=== PATIENT | male | born 1965 | race Two or more races ===

== ENCOUNTER 2019-09-21 10:11 | Inpatient (IN) | payer MEDICAID, SELFPAY ==
[~2019-09-21] VITALS: Ht 182.9 cm; Wt 161.9 kg
[2019-09-21] MEDS ORDERED: ACETAMINOPHEN 500 MG TAB PO ONE ×2 (10:30→10:31)
[2019-09-21] MEDS ORDERED: AZITHROMYCIN 500MG/ 250ML 250 ML IV ONE (11:30)
[2019-09-21] MEDS ORDERED: IPRATROPIUM BROM 0.5 MG/2.5ML INH SOL NEB ONE (11:30)
[2019-09-21] MEDS ORDERED: cefTRIAXone 1GM/50ML D5W 50 ML IV ONE (11:30)
[2019-09-21] MEDS ORDERED: ALBUTEROL SULF 2.5 MG/0.5ML(0.5%) NEB SOLN NEB ONE (11:30)
[2019-09-21 11:41] LABS: Basophils # (auto) 0 10 ^3/uL (0-0.2); Basophils % (auto) 0.5 % (0.0-2.0); Eosinophils # (auto) 0 10 ^3/uL (0-0.8); Hematocrit 43.7 % (41.0-53.0); Hemoglobin 14.7 g/dL (13.5-17.5); Lymphocytes # (auto) 0.3 10 ^3/uL (0.4-5.4); Lymphocytes % (auto) 3.3 % (10.0-50.0); Mean Corpuscular Hemoglobin 28.4 pg (28.0-32.0); Mean Corpuscular Hgb Conc. 33.6 g/dL (32.0-36.0); Mean Corpuscular Volume 84.5 fL (80.0-100.0); Monocytes # (auto) 0.3 10 ^3/uL (0-1.3); Monocytes % (auto) 3.4 % (0.0-12.0); Neutrophils # (auto) 9.6 10 ^3/uL (1.6-8.6); Neutrophils % (auto) 92.8 % (37.0-80.0); Platelet Count (auto) 155 10^3/uL (140-450); Red Blood Cells 5.18 10^6/uL (4.5-5.90); Red Cell Distribution Width 15.5 % (11.8-14.3); White Blood Cell 10.4 10^3/uL (4.4-10.8)
[2019-09-21 11:59] LABS: Albumin 3.1 g/dL (3.4-5.0); Anion Gap 8 (5-15); Blood Urea Nitrogen 14 mg/dL (7-18); Calcium 8.4 mg/dL (8.5-10.1); Carbon Dioxide 24 mmol/L (21-32); Chloride 97 mmol/L (98-107); Glucose 99 mg/dL (74-106); Sodium 129 mmol/L (136-145)
[2019-09-21 12:04] LABS: Alanine Aminotransferase 24 U/L (16-61); Alkaline Phosphatase 74 U/L (45-117); Aspartate Aminotransferase 29 U/L (15-37); BUN/Creatinine Ratio 13.7; Bilirubin, Total 0.8 mg/dL (0.2-1.0); GFR African American 98 mL/min; GFR Non-African American 81 mL/min; Total Protein 8.3 g/dL (6.4-8.2)
[2019-09-21] MEDS ORDERED: ONDANSETRON HCL 4 MG/2 ML VIAL ONE (12:26)
[2019-09-21] MEDS ORDERED: MORPHINE SULF INJ 2 MG/ML SYRINGE 1ML ONE (12:26)
[2019-09-21] MEDS ORDERED: MORPHINE SULF INJ 2 MG/ML SYRINGE 1ML IV ONE (12:30)
[2019-09-21] MEDS ORDERED: ONDANSETRON HCL 4 MG/2 ML VIAL IV ONE (12:30)
[2019-09-21] MEDS ORDERED: ACETAMINOPHEN 500 MG TAB PO PRN (16:45)
[2019-09-21] MEDS ORDERED: ALBUTEROL SULF HFA 90MCG INH 200DOSE IN PRN (16:45)
[2019-09-21] MEDS ORDERED: NITROGLYCERIN 0.4 MG SL TAB SL PRN (16:45)
[2019-09-21] MEDS ORDERED: MORPHINE SULF INJ 2 MG/ML SYRINGE 1ML IV PRN (16:45)
[2019-09-21] MEDS ORDERED: DEXTROSE (50%) 50ML SYRG IV PRN (16:45)
[2019-09-21] MEDS: ACCU-CHEK COMFORT CURVE STRIP VI SCH ×2 (18:00→22:27)
[2019-09-21] MEDS: InsuLIN REG 1unit/0.01ml Soln (100units/ml) SC SCH ×2 (18:00→22:00)
--- NOTE | 2019-09-21 18:15 | NUR ---
Telemetry admit from RIZWANA JAMES admitted to Telemetry unit after SBAR received. Patient oriented to ROULA TRINIDAD, RN primary RN, unit, room, bed, and unit policies regarding patient care and visiting hours. Patient now on continuous telemetry monitoring, tele box # 12 and telemetry reading on arrival to unit is SR. Patient placed on bedside oxygen, weighed by bedscale and encouraged to call if they need something. All questions and concerns addressed, patient verbalized understanding.
[2019-09-21 18:30] VITALS: BP 108/73
--- NOTE | 2019-09-21 19:12 | NUR ---
Patient requesting pain medications for [id number]. Called Hospitalist Faith and obtained orders for morphine, norco, and zofran. Orders read back and verified. Will administer accordingly.
[2019-09-21] MEDS: cefTRIAXone 1GM/50ML D5W 50 ML IV SCH (19:30)
[2019-09-21] MEDS: ASCORBIC ACID 500 MG TAB PO SCH (19:30)
[2019-09-21] MEDS: ONDANSETRON HCL 4 MG/2 ML VIAL IV PRN (19:45)
[2019-09-21] MEDS: MORPHINE SULF INJ 2 MG/ML SYRINGE 1ML IV PRN (19:45)
--- NOTE | 2019-09-21 19:55 | NUR ---
Opening Shift Note Received report from darlene Zaman RN. Assumed care of patient, awake and alert. No S/S of distress/SOB or pain. Instructed on POC and to call for assist PRN, will continue to monitor for changes Q1hr and PRN.
--- NOTE | 2019-09-21 19:55 | NUR ---
Endorsed care to night RN.
[2019-09-21 20:00] VITALS: BP 123/55
--- NOTE | 2019-09-21 20:15 | NUR ---
RIVKA LAUREANO AWARE THAT PATIENT HAS POCKET KNIFE AT BEDSIDE.
[2019-09-21] MEDS ORDERED: HYDR25TA4 PO (20:45)
[2019-09-21] MEDS ORDERED: METF-370 PO (20:45)
--- NOTE | 2019-09-21 21:54 | NUR ---
JUANY FROM LAB CALLED AND REPORTS A POSITIVE BLOOD CULTURE, GRAM POSITIVE COCCI. WILL NOTIFY
[2019-09-21 22:00] VITALS: BP 123/55
--- NOTE | 2019-09-21 22:02 | NUR ---
POCKET KNIFE DISCARDED IN SHARPS CONTAINER PER PATIENT'S REQUEST.
[2019-09-21] MEDS: HYDROcodone-ACET 5/325MG TAB PO PRN (22:28)
[2019-09-22] MEDS: MORPHINE SULF INJ 2 MG/ML SYRINGE 1ML IV PRN ×4 (01:19→23:00)
--- NOTE | 2019-09-22 01:30 | NUR ---
Urine specimen sent to lab
[2019-09-22 02:00] VITALS: BP 133/83
[2019-09-22 03:00] LABS: Urine Bacteria FEW /hpf (None Seen); Urine Blood 1+ /uL (Negative); Urine WBC 1 /hpf (0 - 3)
[2019-09-22 03:07] LABS: Alcohol, Urine < 3.0 mg/dL (0-5); Amphetamine Screen, Urine POSITIVE (NEGATIVE); Barbiturate Scree,Urine NEGATIVE (NEGATIVE); Benzodiazephine Screen, Urine NEGATIVE (NEGATIVE); Cannabinoid Screen, Urine NEGATIVE (NEGATIVE); Cocaine Screen, Urine NEGATIVE (NEGATIVE); Opiate Scree,Urine NEGATIVE (NEGATIVE); Phencyclidine Screen, Urine NEGATIVE (NEGATIVE)
[2019-09-22] MEDS: ACCU-CHEK COMFORT CURVE STRIP VI SCH ×4 (06:38→21:37)
[2019-09-22] MEDS: InsuLIN REG 1unit/0.01ml Soln (100units/ml) SC SCH ×4 (06:38→21:54)
[2019-09-22] MEDS: HYDROcodone-ACET 5/325MG TAB PO PRN (06:54)
[2019-09-22 06:56] LABS: Basophils # (auto) 0 10 ^3/uL (0-0.2); Basophils % (auto) 0.3 % (0.0-2.0); Eosinophils # (auto) 0 10 ^3/uL (0-0.8); Hematocrit 41.5 % (41.0-53.0); Hemoglobin 14.1 g/dL (13.5-17.5); Lymphocytes # (auto) 0.6 10 ^3/uL (0.4-5.4); Lymphocytes % (auto) 6.5 % (10.0-50.0); Mean Corpuscular Hemoglobin 28.9 pg (28.0-32.0); Mean Corpuscular Hgb Conc. 34.1 g/dL (32.0-36.0); Mean Corpuscular Volume 84.8 fL (80.0-100.0); Monocytes # (auto) 0.7 10 ^3/uL (0-1.3); Monocytes % (auto) 8.1 % (0.0-12.0); Neutrophils # (auto) 7.2 10 ^3/uL (1.6-8.6); Neutrophils % (auto) 85.1 % (37.0-80.0); Nucleated Red Blood Cells % 0.1 %; Platelet Count (auto) 116 10^3/uL (140-450); Red Blood Cells 4.89 10^6/uL (4.5-5.90); Red Cell Distribution Width 15.9 % (11.8-14.3); White Blood Cell 8.4 10^3/uL (4.4-10.8)
[2019-09-22 07:05] VITALS: BP 127/79
[2019-09-22 07:06] LABS: Albumin 2.7 g/dL (3.4-5.0); Calcium 8.5 mg/dL (8.5-10.1); Potassium 3.9 mmol/L (3.5-5.1)
[2019-09-22 07:10] LABS: Bilirubin, Total 1.4 mg/dL (0.2-1.0); Total Protein 7.6 g/dL (6.4-8.2)
--- NOTE | 2019-09-22 07:15 | NUR ---
Opening Shift Note Assumed care of patient, awake and alert. No S/S of distress/SOB or pain. Instructed on POC and to call for assist PRN, will continue to monitor for changes Q1hr and PRN. Fall precautions in place per safety protocol.
[2019-09-22 08:00] VITALS: BP 127/84
[2019-09-22] MEDS: cefTRIAXone 1GM/50ML D5W 50 ML IV SCH (08:23)
[2019-09-22] MEDS: ZINC SULFATE 220mg CAP or TAB PO SCH (08:23)
[2019-09-22] MEDS: ENOXAPARIN SOD 40 MG/0.4 ML SYRINGE SC SCH (08:24)
[2019-09-22] MEDS: ASCORBIC ACID 500 MG TAB PO SCH (08:24)
[2019-09-22] MEDS: CHOLECALCIFEROL (VITD3) 1,000IU=25mCg TAB PO SCH (08:24)
[2019-09-22] MEDS: ONDANSETRON HCL 4 MG/2 ML VIAL IV PRN ×3 (08:55→23:00)
[2019-09-22] MEDS ORDERED: AZITHROMYCIN 500MG/D5WorNS 250ml IV SCH (10:00)
[2019-09-22 12:00] VITALS: BP 132/80
[2019-09-22] MEDS ORDERED: VANCOMYCIN PER PHARMACY 0 MG IV SCH (12:00)
--- NOTE | 2019-09-22 14:08 | NUR ---
Received Social Service Consult for homelessness for pt Mr. Santacruz. The pt is a 53 yr old male who is alert and oriented times 3. Prior to admission pt has been living in his truck for the past year, after his divorce. Pt is independent in his adls. Pt is in agreement with placement and is being referred to the [facility], [address] [place] phone [phone] and the [facility], [address] [place]. ).The [facility] is located on the corner of [address] and [address] in the transportation Center. It opens at 6:30 in the evening. Discussed with pt that usp may not have space but they would try. The usp has their own screening process that pt will have to complete. Pt verbalized agreement. Provided information to clothes closet and a meal prior to discharge. Offered pt taxi voucher within 30 miles and pt agreed although he has his own car. Need to complete rest of assessment and have pt signed homeless waiver. After pt is out of isolation area for Covid 19 Will follow-up and provide intervention as appropriate.
--- NOTE | 2019-09-22 16:00 | NUR ---
Hospitalist at bedside MD Casas at bedside, aware of patient status. Per MD, he will review medications and make changes, no new orders at this time. Will cont to monitor patient.
[2019-09-22 17:00] VITALS: BP 136/86
--- NOTE | 2019-09-22 18:00 | NUR ---
Patient requesting pain medications for headache of 8/10. Will administer pain medications accordingly. Will cont to monitor patient.
--- NOTE | 2019-09-22 19:00 | NUR ---
Endorsed care to night RN Andrew. Patient resting in bed, no distress, sob, or pain noted at this time. Will cont to monitor.
--- NOTE | 2019-09-22 19:35 | NUR ---
Opening Shift Note Assumed care of patient, awake and alert x 4. No S/S of distress/SOB. Bed is locked. Call light within reach.Board updated. Tele box number matches monitors and leads are in correct placement. Instructed on POC and to call for assist PRN, will continue to monitor for changes Q1hr and PRN.
[2019-09-22 21:00] VITALS: BP 130/69
[2019-09-23] VITALS (7 sets, daily range): BP systolic 104–138; BP diastolic 59–81
[2019-09-23] MEDS: ONDANSETRON HCL 4 MG/2 ML VIAL IV PRN (04:47)
[2019-09-23] MEDS: MORPHINE SULF INJ 2 MG/ML SYRINGE 1ML IV PRN (04:47)
--- NOTE | 2019-09-23 06:12 | NUR ---
Received notification from charge nurse Safia TINEO that results for COVID-19 has come in and patient is negative. Will be transferring patient to room 223A under care of RIVKA Campo after day shift shift change. Patient notified.
[2019-09-23] MEDS: InsuLIN REG 1unit/0.01ml Soln (100units/ml) SC SCH ×4 (06:46→21:25)
[2019-09-23] MEDS: ACCU-CHEK COMFORT CURVE STRIP VI SCH ×4 (06:46→21:25)
--- NOTE | 2019-09-23 07:38 | NUR ---
Report given to RIVKA Campo. Patient ready for transfer. RIVKA Campo ensuring bed in 223A is ready.
--- NOTE | 2019-09-23 07:58 | NUR ---
Patient transferred to room 223A with RIVKA Campo. Report given. Patient escorted to anteroom and placed inside, seal enclosed, and RIVKA Campo met patient on other side to escort to room. Patient had cleaned tele-box with him when he transferred. RIVKA Campo will sent down to [place] office and get replacement Tele-box.
[2019-09-23] MEDS ORDERED: AZITHROMYCIN 250 MG TAB PO SCH (10:00)
[2019-09-23] MEDS: ZINC SULFATE 220mg CAP or TAB PO SCH (10:50)
[2019-09-23] MEDS: cefTRIAXone 1GM/50ML D5W 50 ML IV SCH (10:50)
[2019-09-23] MEDS: CHOLECALCIFEROL (VITD3) 1,000IU=25mCg TAB PO SCH (10:50)
[2019-09-23] MEDS: ASCORBIC ACID 500 MG TAB PO SCH (10:51)
[2019-09-23] MEDS: ENOXAPARIN SOD 40 MG/0.4 ML SYRINGE SC SCH (10:51)
[2019-09-23] MEDS ORDERED: FUROSEMIDE 20 MG/2 ML VIAL IV ONE (12:15)
--- NOTE | 2019-09-23 15:49 | NUR ---
Received Social Service Consult as pt is homeless. Pt is alert and oriented times 3. Pt has been residing in his truck and with his sister. He is not able to stay at his sister house permanently. Pt has been homeless for over a year. Pt does have ID. Pt states he will return to his forming living situation. Pt signed the Homeless waiver. Gave pt Resource packet and explained the location of the [facility].
--- NOTE | 2019-09-23 16:00 | NUR ---
Pt's sister called pt and she stated if he did not have the covid virus she was willing to take him in her home. The nurse spoke with the sister and was assured that pt was free of the virus. convention worker also explained he could have a meal prior to leaving. Pt stated that he did not need any clothing.
--- NOTE | 2019-09-23 19:00 | NUR ---
Opening Shift Note Assumed care of patient, awake and alert. No S/S of distress/SOB, patient complains of a headache of 6/10, will administer medication for pain. Instructed on POC and to call for assist PRN, will continue to monitor for changes Q1hr and PRN. patient in lowest possible position with call light within reach. Will continue to monitor patient.
[2019-09-23] MEDS: HYDROcodone-ACET 5/325MG TAB PO PRN (20:37)
[2019-09-23] MEDS ORDERED: levoFLOXacin 500MG 100 ML IV ONE (21:00)
[2019-09-23] MEDS: VANCOMYCIN 1GM/250ML 250 ML IV SCH (23:19)
[2019-09-24 05:00] VITALS: BP 118/77
[2019-09-24] MEDS: HYDROcodone-ACET 5/325MG TAB PO PRN ×2 (05:23→13:30)
[2019-09-24] MEDS: ACCU-CHEK COMFORT CURVE STRIP VI SCH ×2 (06:12→11:30)
[2019-09-24] MEDS: InsuLIN REG 1unit/0.01ml Soln (100units/ml) SC SCH ×2 (06:13→11:30)
--- NOTE | 2019-09-24 07:15 | NUR ---
Opening shift note Assumed care, patient currently sleeping, no s/s of distress/SOB noted at this time. Patient on room air. Bed in low position, locked, and call light within reach. Will continue care.
[2019-09-24 09:11] VITALS: BP 125/64
[2019-09-24] MEDS: ENOXAPARIN SOD 40 MG/0.4 ML SYRINGE SC SCH (09:55)
[2019-09-24] MEDS: VANCOMYCIN 1GM/250ML 250 ML IV SCH (09:55)
[2019-09-24] MEDS ORDERED: levoFLOXacin 500MG 100 ML IV SCH (10:00)
--- NOTE | 2019-09-24 11:30 | NUR ---
patient refusing accucheck patient refusing 1130 accucheck. Per patient he is not diabetic and he has not needed any insulin since his admission. Will notify
[2019-09-24] MEDS ORDERED: HYDR25TA4 PO (11:31)
[2019-09-24] MEDS ORDERED: POTA1TAB61 PO (11:31)
[2019-09-24] MEDS ORDERED: LEVO-28 PO (11:31)
[2019-09-24] MEDS ORDERED: METF-370 PO (11:31)
[2019-09-24 12:39] VITALS: BP 121/61
[2019-09-24 13:19] VITALS: BP 121/61
--- NOTE | 2019-09-24 14:10 | NUR ---
Discharge instructions given as ordered. Encourage to follow up with PMD as instructed. All questions and concerns addressed. Patient verbalized understanding. IV removed with catheter intact, pressure dressing applied. Telemetry unit returned to ICU. Patient taken to vehicle via wheelchair with all personal belongings, accompanied by staff. No distress noted at time of departure.
== END 2019-09-24 14:10 | disposition home or self-care (01) | DRG 194 ==
LOC: ER 10:11 → TELE-EAST 10:12 → TELE-CENTR 09-23 08:15
PROVIDERS: ADMIT Nurse Practitioner Acute Care; ATTEND Hospitalist
DX: I11.0 Hypertensive heart disease with heart failure (principal); J96.01 Acute respiratory failure with hypoxia; R65.10 Systemic inflammatory response syndrome (SIRS) of non-infectious origin without acute organ dysfunction; R78.81 Bacteremia; E11.40 Type 2 diabetes mellitus with diabetic neuropathy, unspecified; E44.1 Mild protein-calorie malnutrition; I50.33 Acute on chronic diastolic (congestive) heart failure; E87.1 Hypo-osmolality and hyponatremia; E66.01 Morbid (severe) obesity due to excess calories; B95.61 Methicillin susceptible Staphylococcus aureus infection as the cause of diseases classified elsewhere; E78.5 Hyperlipidemia, unspecified; I10 Essential (primary) hypertension; Z68.42 Body mass index [BMI] 45.0-49.9, adult; Z79.899 Other long term (current) drug therapy; Z03.818 Encounter for observation for suspected exposure to other biological agents ruled out
CPT/HCPCS: 36415; 71045; 80053; 80061; 80307; 81001; 82728; 82962; 83036; 83605; 83615; 84484; 85025; 86141; 87040; 87070; 87077; 87186; 87804; 87880; 93005; 93306; 94640; 96365; 96367; 96375; G0378; J0696; J1956; J2405

== ENCOUNTER → 2019-10-28 | Emergency (ER) | payer MEDICAID, SELFPAY ==
[~2019-10-28] VITALS: Ht 182.9 cm; Wt 163.3 kg
[~2019-10-28] MED LIST: BACITRACIN TOP OINT 1 UD PKG TOP ONE; HYDR25TA4 PO; LEVO-28 PO; METF-370 PO; POTA1TAB61 PO
[2019-10-28 23:38] VITALS: BP 131/73
== END | disposition home or self-care (01) ==
LOC: ER 23:20
DX: S61.211A Laceration without foreign body of left index finger without damage to nail, initial encounter (principal); I10 Essential (primary) hypertension; E11.9 Type 2 diabetes mellitus without complications; E78.5 Hyperlipidemia, unspecified; F17.210 Nicotine dependence, cigarettes, uncomplicated; Z59.0 Homelessness; Z79.2 Long term (current) use of antibiotics; Z79.899 Other long term (current) drug therapy; W26.8XXA Contact with other sharp object(s), not elsewhere classified, initial encounter; Y93.89 Activity, other specified; Y92.89 Other specified places as the place of occurrence of the external cause; Y99.8 Other external cause status
CPT/HCPCS: 12001

== ENCOUNTER 2019-11-16 17:10 | Inpatient (IN) | payer MEDICAID, SELFPAY ==
[~2019-11-16] VITALS: Ht 177.8 cm; Wt 181.4 kg
[~2019-11-16 17:10] MED LIST changes: -BACITRACIN TOP OINT 1 UD PKG TOP ONE
[2019-11-16] MEDS ORDERED: SODIUM BICARBONATE 8.4% INJ 50ML SYRINGE ONE (17:39)
[2019-11-16 17:44] LABS: Hematocrit 43.4 % (41.0-53.0); Hemoglobin 13.5 g/dL (13.5-17.5); Mean Corpuscular Hgb Conc. 31.2 g/dL (32.0-36.0); Mean Corpuscular Volume 89.7 fL (80.0-100.0); Platelet Count (auto) 230 10^3/uL (140-450); Red Blood Cells 4.84 10^6/uL (4.5-5.90); Red Cell Distribution Width 17.1 % (11.8-14.3)
[2019-11-16 17:50] LABS: Basophils % (manual) 0 (0.0-2.0); Blast Cells 0; Myelocytes % 0; Promyelocytes % 0; Reactive Lymphocytes 0
[2019-11-16 17:59] LABS: Albumin 2.9 g/dL (3.4-5.0); Calcium 8.3 mg/dL (8.5-10.1); Magnesium 2.8 mg/dL (1.6-2.6); Potassium 3.6 mmol/L (3.5-5.1)
[2019-11-16 18:02] LABS: Band Neutrophils % (manual) 2; Eosinophils % (manual) 1 (0-7); Lymphocytes % (manual) 36 (10.0-50.0); Metamyelocytes % 2; Monocytes % (manual) 4 (0-12)
[2019-11-16 18:07] LABS: Bilirubin, Total 0.3 mg/dL (0.2-1.0); Total Protein 7.8 g/dL (6.4-8.2)
[2019-11-16 18:10] LABS: INR 1.03 (0.9-1.15); Partial Thromboplastin Time 32.3 sec (23.64-32.05)
[2019-11-16] MEDS ORDERED: EPINEPHrine HCL 250 ML IV SCH (18:11)
[2019-11-16] MEDS ORDERED: HEPARIN SODIUM (PORCINE) 5000 UNITS/ML 1ML VIAL IV ONE (18:15)
[2019-11-16] MEDS ORDERED: MIDAZOLAM DRIP 50 mg/50mL 50 ML IV SCH (19:26)
[2019-11-16 19:28] VITALS: BP 100/34
[2019-11-16 19:35] LABS: Urine Bacteria NONE SEEN /hpf (None Seen); Urine Blood 1+ /uL (Negative); Urine Hyaline Cast MANY /lpf (0 - 2); Urine Mucus FEW (None Seen); Urine Specific Gravity 1.031 (1.001-1.035); Urine Sperm PRESENT /hpf (None Seen); Urine WBC 11 /hpf (0 - 3)
[2019-11-16] MEDS ORDERED: HEPARIN DRIP/D5W 100UNITS/ML 250 ML IV SCH ×2 (19:39→20:00)
[2019-11-16 19:48] LABS: Alcohol, Urine < 3.0 mg/dL (0-10); Amphetamine Screen, Urine POSITIVE (NEGATIVE); Barbiturate Scree,Urine NEGATIVE (NEGATIVE); Benzodiazephine Screen, Urine NEGATIVE (NEGATIVE); Cannabinoid Screen, Urine NEGATIVE (NEGATIVE); Cocaine Screen, Urine NEGATIVE (NEGATIVE); Phencyclidine Screen, Urine NEGATIVE (NEGATIVE)
[2019-11-16 19:56] LABS: Opiate Scree,Urine NEGATIVE (NEGATIVE)
[2019-11-16 20:08] VITALS: BP 126/57
[2019-11-16] MEDS ORDERED: MORPHINE SULF INJ 2 MG/ML SYRINGE 1ML IV PRN (21:30)
[2019-11-16] MEDS ORDERED: ACETAMINOPHEN 325 MG TAB PO PRN (21:30)
[2019-11-16] MEDS ORDERED: SODIUM CHLORIDE 0.9% 1,000 ML IV SCH (21:30)
[2019-11-16] MEDS ORDERED: MANNITOL IV ONE (21:30)
[2019-11-16] MEDS ORDERED: ONDANSETRON HCL 4 MG/2 ML VIAL IV PRN (21:30)
[2019-11-16] MEDS ORDERED: DEXTROSE (50%) 50ML SYRG IV PRN (21:30)
[2019-11-16] MEDS ORDERED: NITROGLYCERIN 0.4 MG SL TAB SL PRN (21:30)
[2019-11-16] MEDS ORDERED: DexAMETHasone SOD PHOS 4 MG/1ML SDV INJ IV SCH (22:00)
[2019-11-16] MEDS ORDERED: SODIUM CHLOR 0.9% PF (SALINE LOCK) 10ML VIAL/SYR IV SCH (22:00)
[2019-11-16 22:06] VITALS: BP 94/52
[2019-11-16] MEDS ORDERED: NOREPINEPHRINE 8 MG/250ML KIT 250 ML IV SCH (22:39)
[2019-11-16] MEDS ORDERED: MANNITOL 20 % (20GM/100ML) 500 ML IV ONE (23:17)
--- NOTE | 2019-11-16 23:47 | NUR ---
Respiratory note: ABG RESULTS REPORTED TO IRVIN SALAZAR, NO NEW RESPIRATORY ORDERS GIVEN AT THIS TIME. WILL CONTINUE TO MONITOR.
[2019-11-17] MEDS ORDERED: ACCU-CHEK COMFORT CURVE STRIP VI SCH
[2019-11-17] MEDS ORDERED: InsuLIN REG 1unit/0.01ml Soln (100units/ml) SC SCH
[2019-11-17] MEDS ORDERED: SODIUM BICARBONATE 50ML VIAL 100 ML in SOD CHL 0.45% 1,000 ML IV SCH (00:30)
[2019-11-17 00:35] VITALS: BP 72/35
[2019-11-17 00:47] VITALS: BP 72/35
[2019-11-17] MEDS ORDERED: CALCIUM CHLOR(10%) 100MG/ML 10ML SYRINGE IV ONE ×2 (01:09→01:23)
[2019-11-17] MEDS ORDERED: ACETAMINOPHEN 650 mg PER 20 mL UD PO PRN (01:15)
[2019-11-17] MEDS ORDERED: LIDOCAINE HCL 100 MG/5ML (2%) SYRG INJ IV ONE (01:23)
[2019-11-17] MEDS ORDERED: SODIUM BICARBONATE 8.4% INJ 50ML SYRINGE IV ONE (01:23)
[2019-11-17] MEDS ORDERED: DOPamine 1600mCg/ml 400MG/250ml NSorD5 KIT/BAG IV ONE (01:23)
[2019-11-17] MEDS ORDERED: EPINEPHrine HCL 1 MG/10 ML SYRG IV ONE (01:23)
[2019-11-17] MEDS ORDERED: ASPirin 81 mg TAB PO SCH (10:00)
[2019-11-18] MEDS ORDERED: CLOPIDOGREL BISULFATE 75 MG TAB PO SCH (10:00)
== END 2019-11-17 01:24 | disposition expired | DRG 190 ==
LOC: ER 17:10 → EDBD 17:10 → TELE 17:11
PROVIDERS: ADMIT Nurse Practitioner; ATTEND Internal Medicine
PROC: 5A1935Z Respiratory Ventilation, Less than 24 Consecutive Hours (ICD-10-PCS; principal; 2019-11-16)
PROC: 0BH17EZ Insertion of Endotracheal Airway into Trachea, Via Natural or Artificial Opening (ICD-10-PCS; 2019-11-16)
DX: I21.09 ST elevation (STEMI) myocardial infarction involving other coronary artery of anterior wall (principal); G93.6 Cerebral edema; I46.9 Cardiac arrest, cause unspecified; I11.0 Hypertensive heart disease with heart failure; G93.1 Anoxic brain damage, not elsewhere classified; E66.01 Morbid (severe) obesity due to excess calories; Z68.43 Body mass index [BMI] 50.0-59.9, adult; E78.5 Hyperlipidemia, unspecified; I50.9 Heart failure, unspecified; R09.02 Hypoxemia; Z59.0 Homelessness; E11.9 Type 2 diabetes mellitus without complications
CPT/HCPCS: 31500; 36415; 36600; 51702; 70450; 71045; 80053; 80307; 81001; 82805; 82962; 83735; 84484; 85007; 85027; 85379; 85610; 85730; 87070; 87077; 87186; 87205; 94002; 96365; 96366; 96368; 96375; 96376; 99291; G0378; J0171; J1100; J2250